=== PATIENT | female | born 1935 | race Caucasian/White ===

== ENCOUNTER 2018-04-26 22:00 | Inpatient (IN) | payer OTHER, BC, MEDICARE ==
[~2018-04-26] VITALS: Ht 165.1 cm; Wt 51.7 kg
[~2018-04-26 22:00] MED LIST: ELAVIL10 MG PO; GLUCOPHAGE XR,500 MG PO; GLUCOTROL XL10 MG PO; LIPITOR20 MG PO; NORVASC5 MG PO; PLAVIX75 MG PO; SYNTHROID50 MCG PO; TOPROL XL50 MG PO
[2018-04-27 07:53] VITALS: BP 136/65
[2018-04-27 13:56] VITALS: BP 134/93
[2018-04-27 15:40] VITALS: BP 136/63
[2018-04-27 19:02] LABS: HEMATOCRIT 31.1 % (36.0-46.0); MCV 97.8 FL (83-99)
[2018-04-27 20:12] VITALS: BP 131/62
[2018-04-28 00:20] VITALS: BP 162/70
[2018-04-28 03:45] VITALS: BP 133/60
[2018-04-28 06:13] LABS: CHLORIDE 105 MEQ/L (99-109); CREATININE 1.1 MG/DL (0.6-1.3); GFR ESTIMATE (CALCULATED) 51 mL/min/; GLUCOSE 159 mg/dL (70-99); POTASSIUM 4.2 MEQ/L (3.7-5.4); SODIUM 139 MEQ/L (136-147); UREA NITROGEN (BUN) 18 mg/dL (9-23)
[2018-04-28 08:07] VITALS: BP 167/62
[2018-04-28 15:39] VITALS: BP 130/63
[2018-04-28 23:15] VITALS: BP 145/72
[2018-04-29 06:50] LABS: CHLORIDE 103 MEQ/L (99-109); GFR ESTIMATE (CALCULATED) 56 mL/min/; GLUCOSE 157 mg/dL (70-99); POTASSIUM 4.1 MEQ/L (3.7-5.4); SODIUM 137 MEQ/L (136-147); UREA NITROGEN (BUN) 27 mg/dL (9-23)
[2018-04-29 16:26] VITALS: BP 161/72
[2018-04-29 23:07] VITALS: BP 132/96
[2018-04-30 08:22] VITALS: BP 140/62
[2018-04-30] MEDS ORDERED: ELIQUIS2.5 MG PO (13:08)
[2018-04-30] MEDS ORDERED: HYDROCODON-ACE1 EAC7 PO (13:08)
[2018-04-30] MEDS ORDERED: NOVOLOG 10100 UNITS/ SC (13:52)
[2018-04-30 16:31] VITALS: BP 145/65
== END 2018-04-30 17:03 | DRG 470 ==
LOC: ENRESERV 22:00 → 2SOUTH 04-27 06:46 → ENRESERV 04-27 11:33 → 2SOUTH 04-27 11:39 → 3EAST 04-27 13:30
PROVIDERS: Orthopaedic Surgery
PROC: 0SRC0J9 Replacement of Right Knee Joint with Synthetic Substitute, Cemented, Open Approach (ICD-10-PCS; principal; 2018-04-27)
DX: M17.11 Unilateral primary osteoarthritis, right knee (principal); E11.65 Type 2 diabetes mellitus with hyperglycemia; I10 Essential (primary) hypertension; J44.9 Chronic obstructive pulmonary disease, unspecified; G43.909 Migraine, unspecified, not intractable, without status migrainosus; E03.9 Hypothyroidism, unspecified; E78.5 Hyperlipidemia, unspecified; Z86.73 Personal history of transient ischemic attack (TIA), and cerebral infarction without residual deficits
CPT/HCPCS: 71045; 80048; 82948; 85014; 85018; C1713; J0690; J1815; J1885; J2250; J2405; J2795; J7050; J7120; L1820; S0020

== ENCOUNTER 2018-06-18 09:40 | Day surgery (SDC) | payer OTHER, BC ==
[~2018-06-18] VITALS: Ht 165.1 cm; Wt 51.7 kg
[~2018-06-18 09:40] MED LIST changes: +ELIQUIS2.5 MG PO; +HYDROCODON-ACE1 EAC7 PO; +NOVOLOG 10100 UNITS/ SC
[2018-06-18 10:28] VITALS: BP 145/65
[2018-06-18 14:50] VITALS: BP 138/64
[2018-06-18 15:35] VITALS: BP 137/61
== END 2018-06-18 15:49 | disposition home or self-care (01) ==
LOC: SDC 09:40
PROVIDERS: Orthopaedic Surgery
PROC: 0SNCXZZ Release Right Knee Joint, External Approach (ICD-10-PCS; principal; 2018-06-18)
DX: T84.82XA Fibrosis due to internal orthopedic prosthetic devices, implants and grafts, initial encounter (principal); Z96.651 Presence of right artificial knee joint; I10 Essential (primary) hypertension; E11.9 Type 2 diabetes mellitus without complications; J44.9 Chronic obstructive pulmonary disease, unspecified; Z86.73 Personal history of transient ischemic attack (TIA), and cerebral infarction without residual deficits; I25.10 Atherosclerotic heart disease of native coronary artery without angina pectoris; Z95.5 Presence of coronary angioplasty implant and graft; Z82.49 Family history of ischemic heart disease and other diseases of the circulatory system; Z79.84 Long term (current) use of oral hypoglycemic drugs; Z79.82 Long term (current) use of aspirin; Y83.1 Surgical operation with implant of artificial internal device as the cause of abnormal reaction of the patient, or of later complication, without mention of misadventure at the time of the procedure
CPT/HCPCS: 82948; J3010